=== PATIENT | male | born 1995 | race Caucasian/White ===

== ENCOUNTER 2017-12-11 14:22 | Emergency (ER) | payer MEDICAID, OTHER ==
[2017-12-11 15:30] VITALS: BP 119/76; PULSE 84; RESP 20; TEMP 98.5; O2SAT 100; BMI 24.3
--- NOTE | 2017-12-11 15:50 | C.PDOC ---
History Of Present Illness 22 yo male c/o itchy rash that start yesterday. No known allergens. No new medication, food or detergent. No one else in the home has it. No recent travel. Denies fever, URI symptoms, sore throat, penile rash or pain, or chest pain. Time Seen by Provider: 12/11/17 15:06 Chief Complaint (Nursing): Abnormal Skin Integrity History Per: Patient History/Exam Limitations: no limitations Onset/Duration Of Symptoms: Days (yesterday) Current Symptoms Are (Timing): Still Present Quality Of Symptoms: Itching Past Medical History Vital Signs: Last Vital Signs Temp 98.5 F 12/11/17 15:28 Pulse 84 12/11/17 15:28 Resp 20 12/11/17 15:28 BP 119/76 12/11/17 15:28 Pulse Ox 100 12/11/17 15:53 Family History: States: Unknown Family Hx - Social History Hx Alcohol Use: Yes Hx Substance Use: No - Immunization History Hx Tetanus Toxoid Vaccination: No Hx Influenza Vaccination: No Hx Pneumococcal Vaccination: No Review Of Systems Except As Marked, All Systems Reviewed And Found Negative. Genitourinary: Positive for: Rash Physical Exam - Physical Exam Appears: Well, Non-toxic, No Acute Distress Skin: Warm, Dry, Rash ((+) vesicules on erythematous base and macules diffusely on torso and upper extremities including palms ) Head: Atraumatic, Normacephalic Eye(s): bilateral: Normal Inspection, PERRL, EOMI Nose: Normal Oral Mucosa: Moist Throat: Normal, No Erythema, No Exudate, No Drooling Neck: Normal, Normal ROM, Supple Chest: Symmetrical Cardiovascular: Rhythm Regular Respiratory: Normal Breath Sounds Back: Normal Inspection, No Vertebral Tenderness Extremity: Normal ROM Neurological/Psych: Oriented x3, Normal Speech ED Course And Treatment O2 Sat by Pulse Oximetry: 100 Progress Note: Pt was seen and evaluated by Dr Wolf, agreed upon plan and treatment. Pt was offered labs for further evaluation, pt declined and left without discharge. Disposition - Disposition Disposition: ELOPEMENT - ER ONLY Disposition Time: 15:25 Condition: STABLE Forms: [facility] (French) - Clinical Impression Clinical Impression: Rash
== END 2017-12-11 16:00 | disposition left against medical advice (07) ==
LOC: C.ER 14:22
DX: R21 Rash and other nonspecific skin eruption (principal)